=== PATIENT | female | born 1995 | race Caucasian/White ===

== ENCOUNTER 2022-05-06 00:09 | Day surgery (SDC) | payer OTHER, SELFPAY ==
[2022-04-29 15:44] VITALS: BMI 29.2
--- NOTE | 2022-04-29 15:48 | PC.NURSE ---
Report to the Outpatient Waiting Room, entrance under the green pavilion located off [facility], at time 0730 on date 05/06/22. OR Time: 0930. Time changes happen often and if your time is changed the preop area will call you the afternoon before. - You and your visitor will be asked to self-screen and do not enter if you have any COVID symptoms. - We encourage only one visitor and NO visitors under age 16 are allowed at this time. Your visitor will receive communication by the phone number that is given day of service. - The patient visitor is requested to social distance or may leave the building when not with patient due to restrictions. - A mask is required within the hospital. Patients may have clear liquids (water, carbonated beverages, clear teas, apple juice) until 3 hours prior to surgery with a maximum of 20 ounces. - No food from midnight until time of surgery Take the following medications with a SIP of water the morning of surgery: SERTRALINE Medications to discontinue per physician: N/A Date to take last dose: N/A Please no make-up, nail khmer, hairspray, perfume, deodorant, or body powder the day of surgery. No jewelry (including any body piercings) or valuables the day of surgery, leave them at home. Please take a shower or bath the night before, or the morning of, surgery with an antibacterial soap. Wear comfortable, loose fitting clothing. - Jewelry must be removed prior to entering the operating room. Rings and piercings that are not removed may be cut off. - The hospital will not accept responsibility for valuables. - Please leave all valuables, including medications, at home the day of surgery. If you are going home after surgery, a licensed local company hazmat driver must drive you home. - NO public transportation without another adult. - We recommend that an adult stay with you for 24 hours following discharge. - We also recommend that you do not drive, make important decision, drink alcoholic beverages, or take any drugs that were not prescribed by your health care provider for at least 24 hours after your discharge time. Follow any additional instructions given to you from your surgeon. If you or anyone in your household have experienced Covid symptoms in the past week, please notify your surgeon or the nurse liaison at the phone number below for possible testing. Telephone instructions given to RACQUEL ORNELAS and asked if any additional questions and then verbalized understanding. Patient advised to call surgeon office or pre surgery nurse liaison [phone] if any additional questions.
--- NOTE | 2022-05-05 15:36 | PM.IMHP ---
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 She does report passage of regular menstrual flow, however, has never been able to insert tampons and has never attempted intercourse. Patient desires surgical management of hymen to enable use of tampons as well as engage in sexual intercourse in the future. She has had a pelvic US showing normal pelvic anatomy. In general, patient doing well today without complaints. Review of Systems Review of Systems: All systems reviewed & are unremarkable except as noted in HPI and below Constitutional: Constitutional: Reports as per HPI and Reports no additional constitutional complaints Eyes: Eyes: Reports as per HPI and Reports no additional eye complaints ENT: Reports system reviewed and no additional complaints, except as documented and Reports as per HPI Cardiovascular: Cardiovascular: Reports as per HPI and Reports no additional cardiovascular complaints Respiratory: Respiratory: Reports as per HPI and Reports no additional respiratory complaints Gastrointestinal: Gastrointestinal: Reports as per HPI and Reports no additional gastrointestinal complaints Genitourinary: Genitourinary: Reports no additional female genitourinary complaints and Reports as per HPI Musculoskeletal: Musculoskeletal: Reports no additional musculoskeletal complaints and Reports as per HPI Integumentary/Breasts: Skin/Breast: Reports system reviewed and no additional complaints, except as docu and Reports as per HPI Neurologic: Reports system reviewed and no additional complaints, except as documented and Reports as per HPI Psychiatric: Psychiatric: Reports no additional psychiatric complaints and Reports as per HPI Endocrine: Endocrine: Reports no additional endocrine complaints and Reports as per HPI Hematologic/Lymphatic: Hematologic/Lymphatic: Reports no additional hematologic/lymphatic complaints and Reports as per HPI Allergic/Immunologic: Allergic/Immunologic: Reports no additional allergic/immunologic complaints and Reports as per HPI PMF Past Medical History Medical History Allergies Anxiety Surgical History Surgical History [place] teeth removed Family History Family History Mother Uterine cancer Depression Hypertension Social History Social History Smoking status: Never smoker Alcohol intake: current Alcohol use details: RARE Substance use: never Substance use type: does not use Spiritual care concerns: No Meds Home Medications and Allergies Home Medications Medication Instructions Recorded Confirmed Type sertraline 25 mg tablet 25 mg PO DAILY 02/24/22 04/29/22 History lidocaine 5 % topical ointment 1 applic topical QID PRN pain #30 04/26/22 04/29/22 Rx grams Allergies Allergy/AdvReac Type Severity Reaction Status Date / Time No Known Allergies Allergy Verified 04/29/22 15:43 Exam Const: General: cooperative, healthy appearing, comfortable and no acute distress HENMT: Head: normal to inspection Ears: hearing grossly normal bilaterally Eyes: General: appearance normal, both eyes and all related structures Neck: Neck: normal visual inspection Resp: Effort & Inspection: normal respiratory effort Auscultation: clear to auscultation bilaterally Cardio: Rate: regular rate Rhythm: regular rhythm GI: Inspection: non-distended GI Palp: Yes Soft to palpation and No Tenderness to palpation present (GI) : Other: deferred to OR Back/Spine/Pelvis: Back: no CVA tenderness Skin: General skin exam: normal color and no rashes or lesions noted Neuro: General: oriented to person, oriented to place and oriente
[2022-05-06] MEDS: LACTATED RINGERS 1,000 ML 30 ML IV CONT (07:00)
--- NOTE | 2022-05-06 07:03 | WPDANESEPPF ---
Anes - Initial Pre Proc Eval Procedure: Operation Date: 05/06/22 07:30 Proposed Procedures p Hymenectomy - Beena Stock MD Date/Time: 05/06/22 07:03 Surgeon: Beena Stock MD Pre Op Diagnosis: Microperforate Hymen Patient Data Age: 26 Gender: F Height: 1.63 m Weight: 77.11 kg Allergies Allergy/AdvReac Type Severity Reaction Status Date / Time No Known Allergies Allergy Verified 04/29/22 15:43 Home Medications Medication Instructions Recorded Confirmed Type sertraline 25 mg tablet 25 mg PO DAILY 02/24/22 04/29/22 History lidocaine 5 % topical ointment 1 applic topical QID PRN pain #30 04/26/22 04/29/22 Rx grams Patient hx anesthesia problems: none Family hx anesthesia problems: none Results Review: All pre-operative results and documents have been reviewed as part of the pre-operative evaluation. PMFSH Past Medical History Medical History Allergies Anxiety Surgical History Surgical History [place] teeth removed Family History Family History Mother Uterine cancer Depression Hypertension Social History Social History Smoking status: Never smoker Alcohol intake: current Alcohol use details: RARE Substance use: never Substance use type: does not use Living arrangements: alone Spiritual care concerns: No Anes - Eval Final PreProcedure Day of Procedure 05/06/22 07:03 Patient weight: overweight Heart: regular rate and rhythm Lungs: clear to auscultation Airway: Mallampati scale class II Neurological: alert and oriented Last oral intake: >/= 8 hours ASA classification: II Emergent: no Anesthetic plan: proceed Anesthesia type and monitoring: general GIVS and standard monitoring Results Review: All pre-operative results and documents have been reviewed as part of the pre-operative evaluation. Informed Consent: The patient's anesthetic plan and its attendant risks and benefits were discussed with the patient/family/POA. Questions were solicited and answers provided to the satisfaction of the patient/family/POA.
--- NOTE | 2022-05-06 07:24 | WPDHPUPDATE1 ---
History and Physical Update Update Date/Time: 05/06/22 07:24 History and Physical has been reviewed, including an updated exam of the patient. There are NO changes in the patient's condition. Risks, benefits, and alternatives have been discussed and questions answered. Patient agrees to proceed with procedure.
[2022-05-06 07:34] VITALS: BP 125/85; PULSE 104; RESP 16; TEMP 37.2; O2SAT 100
[2022-05-06] MEDS: KETOROLAC 30 MG/ML VIAL (*BKC) IV PUSH (07:41)
[2022-05-06] MEDS: LIDOCAINE 1% BUFFERED WITH 8.4% SODIUM BICARB 1 ML SYRINGE 10 ML INFILTRATE (08:19)
[2022-05-06 08:28] VITALS: BP 96/58; PULSE 63; RESP 14; O2SAT 98
--- NOTE | 2022-05-06 08:35 | P.OP_ITS ---
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 She was placed in dorsal supine position. Anesthesia was administered and found to be adequate. The patient was repositioned in dorsal lithotomy position with use of Jose stirrups. She was prepped and draped in usual sterile fashion. A Alamo catheter was inserted and drained 50 cc of clear urine. Alamo catheter was inflated and remained in place for identification of the urethra throughout procedure. On closer examination under anesthesia, two small orifices were noted in hymen. Both orifices were probed with a cotton swab and a connection was made behind the band of tissue confirming a septate hymen as a single cotton swab was able to be passed from one orifice to the other. The intervening band was approximately 0.5-0.7 cm in width. Inferior to these small orifices was a larger amount of hymenal tissue extending inferiorly to the margin of vaginal mucosa. With gentle downward traction, the band of tissue in between the orifices was transected with a 15 blade scalpel just beneath the urethra. The edges of mucosa beneath the urethra were grasped with Allis clamps and reapproximated with approximately three simple interrupted sutures using 3-0 Vicryl. The inferior hymenal tissue was grasped with Allis clamps, elevated, and excised with the scalpel to the level just above the vaginal mucosa in a U-shaped fashion. This tissue was handed off the field to be sent to pathology for analysis. The edges of tissue were similarly grasped with Allis clamps and reapproximated with approximately six to seven small [id number] sutures along the excised margins. Excellent hemostasis was noted. Retractors were used to visualize the vagina and cervix for a complete e xam as had never been previously performed. Vagina and cervix appeared normal. 10 cc of 1% lidocaine was injected circumferentially around excision sites. Antibiotic ointment was applied. Alamo catheter was removed and the procedure was deemed complete. The remainder of the patient was cleansed and dried. She was taken out of the dorsal lithotomy position and awakened from anesthesia without difficulty. She was transferred to the recovery room in stable condition. All sponge and instrument counts were correct at end of the procedure. Estimated Blood Loss -5.0 IV Fluids 500 Urine Output 50 Drains No Packing No Pathology Yes (portion of hymenal tissue) Complications No immediate complications Condition Stable Disposition Same day [facility] Billing Surgery - Charge Forward: Surgery Billing
[2022-05-06 08:50] VITALS: BP 124/66; PULSE 75; RESP 20; O2SAT 100
[2022-05-06] MEDS: oxyCODONE HCL (*CRX) 5 MG TAB IR PO (09:18)
[2022-05-06 09:20] VITALS: BP 119/72; PULSE 75; RESP 20
[2022-05-06 09:40] VITALS: BP 115/73; PULSE 65; RESP 20
== END 2022-05-06 09:52 | disposition home or self-care (01) ==
PROVIDERS: Visit Provider Student in an Organized Health Care Education/Training Program
PROC: (CPT 56700; principal; 2022-05-06 07:30)
DX: Q52.4 Other congenital malformations of vagina (principal); F41.9 Anxiety disorder, unspecified
CPT/HCPCS: 56700; 88305; A9270; J1885; J2250; J2704; J3010; J7120